=== PATIENT | female | born 1940 | race Caucasian/White ===

== ENCOUNTER → 2020-10-30 10:04 | Outpatient (CLI) | payer MEDICARE, SELFPAY ==
--- NOTE | ~2020-10-30 | MM_ITS ---
EXAMINATION: MM screening [facility] BI w eliazar HISTORY: Screening mammogram TECHNIQUE: Craniocaudal and mediolateral oblique 3-D tomosynthesis images were obtained and synthetic 2-D images were generated. CAD analysis was submitted and interpreted. COMPARISON: 10/25/2019, 10/14/2018, 10/16/2017 BREAST PARENCHYMAL COMPOSITION: There are scattered areas of fibroglandular density. FINDINGS: There is no evidence of suspicious mass, calcification, or architectural distortion to sugg est malignancy in either breast. There has been no suspicious interval change. IMPRESSION: 1. No mammographic evidence of malignancy. 2. Recommend routine screening mammography in one year. BI-RADS Category 1: Negative Reviewed, dictated and finalized at location A. 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
== END ==
PROVIDERS: PCP Nurse Practitioner Adult Health; Visit Provider Nurse Practitioner Adult Health
DX: Z12.31 Encounter for screening mammogram for malignant neoplasm of breast (principal)
CPT/HCPCS: 77063; 77067

== ENCOUNTER → 2022-01-28 11:12 | Outpatient (CLI) | payer MEDICARE, SELFPAY ==
--- NOTE | ~2022-01-28 | MM_ITS ---
EXAMINATION: MM screening [facility] w eliazar HISTORY: Screening TECHNIQUE: Craniocaudal and mediolateral oblique 3-D tomosynthesis images were obtained and synthetic 2-D images were generated. CAD analysis was submitted and interpreted. COMPARISON: Comparison to multiple prior studies sequentially, with oldest reviewed study dated 10/2014. BREAST PARENCHYMAL COMPOSITION: There are scattered areas of fibroglandular density. FINDINGS: There is no evidence of suspicious mass, calcification, or architectural distortion to sugg est malignancy in either breast. There has been no suspicious interval change. IMPRESSION: 1. No mammographic evidence of malignancy. 2. Recommend routine screening mammography in one year. BI-RADS Category 1: Negative Reviewed, dictated and finalized at location A.
== END ==
PROVIDERS: PCP Nurse Practitioner Adult Health; Visit Provider Nurse Practitioner Adult Health
DX: Z12.31 Encounter for screening mammogram for malignant neoplasm of breast (principal)
CPT/HCPCS: 77063; 77067

== ENCOUNTER → 2023-01-29 11:23 | Outpatient (CLI) | payer MEDICARE, SELFPAY ==
--- NOTE | ~2023-01-29 | MM_ITS ---
EXAMINATION: MM screening [facility] BI w eliazar HISTORY: Screening TECHNIQUE: Craniocaudal and mediolateral oblique 3-D tomosynthesis images were obtained and synthetic 2-D images were generated. CAD analysis was submitted and interpreted. COMPARISON: Comparison to multiple prior studies sequentially, with oldest reviewed study dated 09/25. BREAST PARENCHYMAL COMPOSITION: There are scattered areas of fibroglandular density. FINDINGS: There is no evidence of suspicious mass, calcification, or architectural distortion to sugg est malignancy in either breast. There has been no suspicious interval change. IMPRESSION: 1. No mammographic evidence of malignancy. 2. Recommend routine screening mammography in one year. BI-RADS Category 1: Negative Reviewed, dictated and finalized at location A.
== END ==
PROVIDERS: PCP Nurse Practitioner Family; Visit Provider Nurse Practitioner Family
DX: Z12.31 Encounter for screening mammogram for malignant neoplasm of breast (principal)
CPT/HCPCS: 77063; 77067

== ENCOUNTER 2023-02-26 08:37 | Outpatient (CLI) | payer MEDICARE, SELFPAY ==
[2023-02-26 10:03] LABS: Alanine Aminotransferase 22 U/L (6-35); Albumin Level 4.4 g/dL (3.5-5.1); Alkaline Phosphatase 73 U/L (38-126); Anion Gap 6 mmol/L (8-16); Aspartate Amino Transferase 24 U/L (14-36); Bilirubin,Total 0.7 mg/dL (0.2-1.3); Blood Urea Nitrogen 26 mg/dL (7-17); Calcium 9.7 mg/dL (8.4-10.2); Carbon Dioxide 29 mmol/L (22-30); Chloride 105 mmol/L (98-107); Cholesterol 195 mg/dL (0-200); Estimated Glomerular Filt Rate 48; Glucose 93 mg/dL (65-110); HDL Direct 44 mg/dL; Sodium 140 mmol/L (137-145); Triglycerides 128 mg/dL (<150)
[2023-02-26 10:14] LABS: LDL Cholesterol Direct 104 mg/dL
== END 2023-02-26 08:38 | disposition home or self-care (01) ==
LOC: ANHLAB 08:44
PROVIDERS: PCP Nurse Practitioner Family; Visit Provider Nurse Practitioner Family
DX: E55.9 Vitamin D deficiency, unspecified (principal); E78.5 Hyperlipidemia, unspecified; I10 Essential (primary) hypertension
CPT/HCPCS: 36415; 80048; 80061; 80076

== ENCOUNTER 2023-03-03 10:17 | Outpatient (CLI) | payer MEDICARE, SELFPAY ==
[2023-03-03 12:05] LABS: Vitamin D 25 Hydroxy 64.6 ng/mL
== END 2023-03-03 10:18 | disposition home or self-care (01) ==
PROVIDERS: PCP Nurse Practitioner Family; Visit Provider Nurse Practitioner Family
DX: I10 Essential (primary) hypertension (principal); E55.9 Vitamin D deficiency, unspecified; E78.5 Hyperlipidemia, unspecified
CPT/HCPCS: 36415; 82306

== ENCOUNTER 2023-03-15 19:06 | Emergency (ER) | payer MEDICARE, SELFPAY ==
--- NOTE | ~2023-03-15 | CT_ITS ---
EXAMINATION: CT lumbar spine wo con DATE: 03/15/2023 23:10 INDICATION: Low back pain. TECHNIQUE: Computed tomography (CT) of the lumbar spine was performed without intravenous contrast. A utomated exposure control and iterative reconstruction technique were employed. The dose-length produ ct was 524.37 mGy-cm. COMPARISON: None FINDINGS: There is 11 degrees levoscoliosis of lumbar spine. S1 is a transitional segment. There is 6 mm anterolisthesis of L4 on L5. Vertebral body heights are normal. There is moderately decreased dis c height at T11-T12, severely decreased disc height at L1-L2 and L2-L3, mildly decreased disc height at L3-L4, and severely decreased disc height at L4-L5 and L5-S1. There is Baastrup disease at L3-L4 a nd L4-L5. The following disc levels are specifically discussed: L1-L2: The disc is bulging. There is severe right and moderate left facet joint osteoarthritis. There is mild bilateral neural foraminal stenosis. There is mild central canal stenosis. L2-L3: The disc is bulging. There is severe bilateral facet joint osteoarthritis. There is mild bilat eral neural foraminal stenosis. There is mild central canal stenosis. L3-L4: The disc is bulging. There is severe bilateral facet joint osteoarthritis. There is hypertroph y of the ligamentum flavum. There is mild bilateral neural foraminal stenosis. There is moderate kisha tral canal stenosis. L4-L5: The disc is bulging. There is severe bilateral facet joint osteoarthritis. There is hypertroph y of the ligamentum flavum. There is moderate right and mild left neural foraminal stenosis. There is severe central canal stenosis. L5-S1: The disc is bulging. There is severe bilateral facet joint osteoarthritis. There is mild bilat eral neural foraminal stenosis. There is mild central canal stenosis. IMPRESSION: 1. Severe lumbar spondylosis. Reviewed, dictated and finalized at location A.
[2023-03-15 19:16] VITALS: BP 174/76; PULSE 112; RESP 18; TEMP 37.2; O2SAT 98
--- NOTE | 2023-03-15 21:52 | ED.BACK ---
HPI - Back Pain/Injury General Chief Complaint: Back Pain/Injury Stated Complaint: back pain Time Seen by Provider: 03/15/23 21:17 Source: patient Mode of arrival: ambulatory Limitations: no limitations History of Present Illness HPI Narrative: This is an 82-year-old female who presents to the ED with chief complaint of acute on chronic back pain. She states the pain is in the low back area and radiates down the right leg. She states this is the exact same in character to her chronic back pain for several years. However today the severity of pain became worse. Denies any traumas or injuries. Denies any saddle anesthesia, fevers, chills, numbness, weakness, urinary retention or incontinence. Denies urinary symptoms. Denies chest pain or abdominal pain. Related Data Allergies Allergy/AdvReac Type Severity Reaction Status Date / Time levofloxacin Allergy Mild rash Verified 03/15/23 19:07 Review of Systems Review of Systems: CONSTITUTIONAL: Denies fever, chills, or sweats. EYES: Denies visual changes, redness, or discharge. ENT: Denies rhinorrhea, congestion, sore throat, or otalgia. CARDIOVASCULAR: Denies chest pain, palpitations, or edema. RESPIRATORY: Denies cough or dyspnea. GASTROINTESTINAL: Denies abdominal pain, nausea, vomiting, or diarrhea. GENITOURINARY: Denies dysuria or hematuria. SKIN: Denies rash or itching. MUSCULOSKELETAL: See HPI NEUROLOGIC: Denies headache, numbness, dizziness, or weakness. PSYCHIATRIC: Denies anxiety or depression. PMFSH Social History Social History Smoking status: Never smoker Alcohol intake: current Exam Narrative: GENERAL: Well-appearing, well-nourished, and in no acute distress. HEAD: Normocephalic, atraumatic. EYES: PERRLA and EOMI. ENT: Nares clear, no rhinorrhea or epistaxis. Mucous membranes moist. Oropharynx without tonsillar hypertrophy exudate or other lesions. NECK: Supple. No adenopathy or masses. CHEST: No respiratory distress. Clear to auscultation. No wheezes rales or rhonchi HEART: Regular rate and rhythm. No murmur heard. Normal peripheral pulses. ABDOMEN: Soft, nontender, nondistended, normal active bowel sounds. MSK: Right paraspinal tenderness around the lumbar spine. Right SI joint tenderness. Straight leg raise on the right recreates pain down the leg. Normal range of motion. No edema. No midline pain or step-offs or deformities. She is ambulatory. SKIN: Warm, dry, no rash. NEURO: Alert and oriented x3. No focal deficits. No saddle anesthesia. 5 out of 5 strength and sensation throughout the lower extremities. PSYCH: Normal mood and affect. Course Vital Signs Vital signs: Vital Signs Temperature 99.0 F 03/15/23 19:16 Pulse Rate 112 H 03/15/23 19:16 Respiratory Rate 18 03/15/23 19:16 Blood Pressure 174/76 H 03/15/23 19:16 Pulse Oximetry 98 03/15/23 19:16 Temperature 99.0 F 03/15/23 19:16 Pulse Rate 112 H 03/15/23 19:16 Respiratory Rate 18 03/15/23 19:16 Blood Pressure 174/76 H 03/15/23 19:16 Pulse Oximetry 98 03/15/23 19:16 MDM - Back Pain/Injury MDM Narrative Medical decision making narrative: This is an 82-year-old female presents to the ED with chief complaint of right lower back pain radiating into the right leg for several years and worse today. No new injuries or traumas. Vitals are stable. Exam is reassuring. No red flag back signs or symptoms other than age. Lab work is unremarkable. UA negative. CT of the lumbar spine shows advanced degenerative changes. Her symptoms are likely consistent with degenerative disc disease with sciatica. Stable for discharge. Encouraged to follow-up closely with her PCP regarding pain control. Supportive measures discussed and return precautions given. Patient and family are understanding and agreeable with plan for discharge and follow-up. Lab Data 03/15/23 22:01 03/15/23 22:01 Labs: Lab Results 03/15/2302/24
[2023-03-15] MEDS: ONDANSETRON INJ 4 MG/2 ML VIAL IV PUSH (22:02)
[2023-03-15] MEDS: MORPHINE SULFATE (*CRX) 4 MG/ML INJ IV PUSH (22:02)
[2023-03-15 22:09] LABS: Basophils Percent Auto 0.3 % (0.2-1.2); Hematocrit 37.9 % (37.0-47.0); Hemoglobin 12.6 g/dL (12.0-15.0); Immature Granulocyte Absolute 0.04 K/mm3 (0.00-0.031); Immature Granulocyte Percent A 0.4 % (0-0.5); Lymphocytes Absolute Auto 1.75 K/mm3 (0.9-3.2); Lymphocytes Percent Auto 15.9 % (18.3-44.2); Mean Corpuscular HGB Conc 33.2 g/dl (32-36); Mean Corpuscular Hemoglobin 31.9 pg (26-34); Mean Corpuscular Volume 95.9 fl (80-100); Mean Platelet Volume 10.1 fl (7.4-10.4); Monocytes Percent Auto 8.8 % (2.6-8.5); Neutrophils Absolute Auto 8.2 K/mm3 (1.3-6.7); Neutrophils Percent Auto 74.6 % (45.5-73.1); Platelet Count Result 225 k/mm3 (150-375); Red Blood Count 3.95 M/mm3 (4.2-5.4); Red Cell Distribution Width 12.3 % (11.5-14.5)
[2023-03-15 22:20] LABS: Alanine Aminotransferase 33 U/L (6-35); Albumin Level 3.9 g/dL (3.5-5.1); Alkaline Phosphatase 86 U/L (38-126); Anion Gap 6 mmol/L (8-16); Aspartate Amino Transferase 36 U/L (14-36); Bilirubin,Total 0.9 mg/dL (0.2-1.3); Blood Urea Nitrogen 31 mg/dL (7-17); Calcium 8.8 mg/dL (8.4-10.2); Carbon Dioxide 27 mmol/L (22-30); Chloride 105 mmol/L (98-107); Estimated CRCL calculation 39 ml/min; Estimated Glomerular Filt Rate 60; Glucose 114 mg/dL (65-110); Potassium 3.5 mmol/L (3.4-5.0); Sodium 138 mmol/L (137-145)
[2023-03-15 23:38] LABS: Appearance Urine Clear (Clear); Bacteria Urine 4+ /hpf; Bilirubin Urine Negative (Negative); Blood Urine Negative (Negative); Color Urine Dark Yellow (Yellow); Glucose Urine UA Negative (Negative); Ketones Urine 1+ mg/dL (Negative); Leukocyte Esterase Ur Negative LEU/UL (Negative); Nitrate Urine Negative (Negative); Non Pathogenic Casts 0-2; Protein Urine 2+ mg/dL (Negative); RBC Urine 0-2 /hpf (0-2); Specific Grav Ur 1.023 (1.001-1.035); Squamous Epithelial Cell Urine None seen /hpf (Few); WBC Urine 0-5 /hpf
[2023-03-15 23:48] LABS: Add Urine Microscopic? YES
[2023-03-16 02:50] VITALS: BP 184/93; PULSE 103; RESP 17; O2SAT 98
== END 2023-03-16 03:00 | disposition home or self-care (01) ==
PROVIDERS: Emergency Provider Physician Assistant; PCP Nurse Practitioner Family
DX: S39.012A Strain of muscle, fascia and tendon of lower back, initial encounter (principal); M54.16 Radiculopathy, lumbar region; X58.XXXA Exposure to other specified factors, initial encounter
CPT/HCPCS: 36415; 72131; 80053; 81001; 85025; 96374; 96375; 99284; J2270; J2405

== ENCOUNTER 2023-08-10 10:01 | Inpatient (IN) | payer MEDICARE, SELFPAY ==
[2023-08-10] VITALS (37 sets, daily range): BP systolic 116–169; BP diastolic 51–98; PULSE 82–114; RESP 16–27; TEMP 36.4–36.7; O2SAT 92–100; BMI 25.0
--- NOTE | ~2023-08-10 | CT_ITS ---
EXAMINATION: CT abdomen pelvis w con DATE: 08/10/2023 14:10 INDICATION: Nausea and vomiting TECHNIQUE: Computed tomography (CT) of the abdomen and pelvis was performed with 100 mL Omnipaque-350 intravenous contrast. Automated exposure control and iterative reconstruction technique were employe d. The dose-length product was 636.65 mGy-cm. COMPARISON: None FINDINGS: Respiratory motion and minimal atelectasis at the bilateral lung bases. Heart size is normal. No evert cardial or pleural effusion. Small sliding-type hiatal hernia. Additional scattered motion artifact a t the upper and lower abdomen mildly limiting evaluation. Diffuse hepatic steatosis. Gallbladder, spl een, pancreas and bilateral adrenal glands are normal. Likely age-related mild bilateral renal atroph y. Bowels including the appendix are normal. Bladder, anteverted uterus and bilateral adnexa are unre markable. No free intraperitoneal gas or fluid. No pathologically enlarged abdominal or pelvic lympha denopathy. Moderate lower thoracic spondylosis with chronic mild likely physiologic anterior wedging at T11 and T12. Mild lumbar levoscoliosis with severe spondylosis and 4 mm anterolisthesis L4 on L5. IMPRESSION: 1. No acute intra-abdominal/pelvic process. 2. Small sliding-type hiatal hernia. 3. Diffuse hepatic steatosis. Reviewed, dictated and finalized at location A.
--- NOTE | ~2023-08-10 | CT_ITS ---
EXAMINATION: CT brain wo con DATE: 08/10/2023 10:55 INDICATION: Increased confusion. Headache. Nausea and vomiting. TECHNIQUE: Computed tomography (CT) of the head was performed without intravenous contrast. The mA wa s adjusted according to patient size. Iterative reconstruction technique was employed. Exam dose: 68 1.00 mGy-cm total exam DLP. COMPARISON: None FINDINGS: There is prominent bilateral carotid siphon internal carotid artery calcifications and vert ebrobasilar artery calcification as well. There is nonspecific diminished attenuation of the cerebral white matter, likely due to chronic small vessel ischemic changes. No intracranial mass lesion or hemorrhage or cerebrovascular accident is detected. No midline shifts or mass effect. No subdural or epidural hematoma. Left mastoid effusions are noted. The right mastoid air cells are clear. There is some soft tissue th ickening within the left sphenoid sinus; the remainder of the paranasal sinuses are unremarkable. No fracture or bone destruction of the cranial vault is detected. Bilateral lens replacements. IMPRESSION: Cerebral atherosclerosis and chronic small vessel ischemic changes of the cerebral white matter No acute intracranial finding Reviewed, dictated and finalized at Location A. Reviewed, dictated and finalized at location B.
--- NOTE | 2023-08-10 10:08 | ECG_ITS ---
Measurements Intervals Welcome Rate: 110 P: 38 SD: 160 QRS: -23 QRSD: 81 T: 13 QT: 319 QTc: 432 Interpretive Statements SINUS TACHYCARDIA BASELINE ARTIFACT BORDERLINE LEFT AXIS DEVIATION [QRS AXIS < -20] MINIMAL ST DEPRESSION [0.025+ mV ST DEPRESSION] ABNORMAL RHYTHM ECG COMPARED TO ECG 08/17/2019 13:14:05 HEART RATE HAS INCREASED ST (T WAVE) DEVIATION NOW PRESENT Electronically Signed On 08-10-2023 17:01:48 CDT by Casper Fernandez M.D.
[2023-08-10 10:28] LABS: Basophils Percent Auto 0.4 % (0.2-1.2); Eosinophils Absolute Auto 0.2 K/mm3 (0-0.3); Eosinophils Percent Auto 3.2 % (0-4.4); Hemoglobin 13.3 g/dL (12.0-15.0); Immature Granulocyte Absolute 0.03 K/mm3 (0.00-0.031); Immature Granulocyte Percent A 0.4 % (0-0.5); Lymphocytes Absolute Auto 1.31 K/mm3 (0.9-3.2); Lymphocytes Percent Auto 17.9 % (18.3-44.2); Mean Corpuscular HGB Conc 32.4 g/dl (32-36); Mean Corpuscular Hemoglobin 31.9 pg (26-34); Mean Corpuscular Volume 98.3 fl (80-100); Mean Platelet Volume 10.3 fl (7.4-10.4); Monocytes Absolute Auto 0.7 K/mm3 (0.1-0.6); Monocytes Percent Auto 9.7 % (2.6-8.5); Neutrophils Percent Auto 68.4 % (45.5-73.1); Platelet Count Result 221 k/mm3 (150-375); Red Blood Count 4.17 M/mm3 (4.2-5.4); Red Cell Distribution Width 13.3 % (11.5-14.5); White Blood Count 7.3 K/mm3 (4.5-10.0)
--- NOTE | 2023-08-10 10:30 | ED.AMS ---
HPI - Altered Mental Status General Chief Complaint: Altered Mental Status Stated Complaint: AMS/WEAK/ R/O CVA History of Present Illness HPI narrative: Patient is an 83-year-old female who presents ER with new alteration mental status. Patient has history of dementia and lives at a fpc. Patient is only oriented x1. She is able to follow commands. No focal weakness. Patient does endorse having a headache but provides no additional history. Nontoxic-appearing. Related Data Home Medications Medication Instructions Recorded Confirmed buspirone 15 mg tablet 7.5 mg PO BID 08/10/23 08/10/23 celecoxib 200 mg capsule 200 mg PO DAILY 08/10/23 08/10/23 cholecalciferol (vitamin D3) 25 1,000 unit PO DAILY 08/10/23 08/10/23 mcg (1,000 unit) capsule cyclobenzaprine 5 mg tablet 5 mg PO TID PRN muscle spasm 08/10/23 08/10/23 famotidine 20 mg tablet 20 mg PO BID 08/10/23 08/10/23 lisinopril 40 mg tablet 40 mg PO DAILY 08/10/23 08/10/23 meclizine 25 mg tablet 25 mg PO DAILY PRN Dizziness Or 08/10/23 08/10/23 Vertigo metoprolol succinate 25 mg 25 mg PO DAILY 08/10/23 08/10/23 tablet,extended release 24 hr tramadol 50 mg tablet 50 mg PO BID PRN Pain 08/10/23 08/10/23 Allergies Allergy/AdvReac Type Severity Reaction Status Date / Time levofloxacin Allergy Mild rash Verified 03/15/23 19:07 morphine AdvReac Hallucinati Verified 08/10/23 13:21 ng Review of Systems Review of Systems: ROS unobtainable: Yes unobtainable due to mental status PMFSH Past Medical History Medical History (Updated 08/10/23 @ 19:21 by Jorge Luis Thomason MD) Dementia Essential hypertension Pure hypercholesterolemia Social History Social History Smoking status: Never smoker Alcohol intake: never Substance use: never Spiritual care concerns: No Exam Narrative: GENERAL: Well-appearing, well-nourished, and in no acute distress. HEAD: Normocephalic, atraumatic. EYES: PERRL and EOMI. ENT: Mucous membranes moist. CHEST: Clear to auscultation. No respiratory distress. HEART: Regular rate and rhythm. Normal peripheral pulses. ABDOMEN: Soft, nontender, nondistended. EXTREMITIES: Normal range of motion. No edema. SKIN: Warm, dry, no rash. NEURO: Alert and oriented x1. No upper or lower extremity drift. No slurred speech. Cranial nerves symmetric PSYCH: Normal mood and affect. Course Course Emergency Course: Patient's labs with evidence of dehydration. Patient received 1500 mL of saline while in the ER with minimal improvement of her creatinine. She also continues to be nauseous and has not felt she will improve at home. No acute intra-abdominal process or intracranial process. Admit for hydration nausea control Vital Signs Vital signs: Vital Signs Temperature 97.6 F 08/10/23 09:57 Pulse Rate 114 H 08/10/23 09:57 Respiratory Rate 26 H 08/10/23 09:57 Blood Pressure 161/88 H 08/10/23 09:57 Pulse Oximetry 100 08/10/23 09:57 Oxygen Delivery Room Air 08/10/23 09:57 Temperature 98.0 F 08/10/23 17:16 Pulse Rate 89 08/10/23 17:16 Respiratory Rate 18 08/10/23 17:16 Blood Pressure 146/51 H 08/10/23 17:16 Pulse Oximetry 100 08/10/23 17:16 Oxygen Delivery Room Air 08/10/23 11:15 MDM - Altered Mental Status Lab Data 08/10/23 10:23 08/10/23 14:50 Labs: Lab Results 08/10/23 08/10/23 08/10/23 Range/Units 10: 10:34 14:50 WBC 7.3 (4.5-10.0) K/mm3 RBC 4.17 L (4.2-5.4) M/mm3 Hgb 13.3 (12.0-15.0) g/dL Hct 41.0 (37.0-47.0) % MCV 98.3 (80-100) fl MCH 31.9 (26-34) pg MCHC 32.4 (32-36) g/dl RDW 13.3 (11.5-14.5) % Plt Count 221 (150-375) k/mm3 MPV 10.3 (7.4-10.4) fl Immature Gran % (Auto) 0.4 (0-0.5) % Neut % (Auto) 68.4 (45.5-73.1) % Lymph % (Auto) 17.9 L (18.3-44.2) % [place] % (Auto) 9.7 H (2.6-8.5) % Eos % (Auto) 3.2 (0-4.4) % Baso % (Auto) 0.4 (0.2-1.2) %
[2023-08-10 10:40] LABS: Alanine Aminotransferase 27 U/L (6-35); Albumin Level 4.3 g/dL (3.5-5.1); Alkaline Phosphatase 85 U/L (38-126); Anion Gap 10 mmol/L (8-16); Aspartate Amino Transferase 32 U/L (14-36); Bilirubin,Total 0.7 mg/dL (0.2-1.3); Blood Urea Nitrogen 40 mg/dL (7-17); Calcium 10.4 mg/dL (8.4-10.2); Carbon Dioxide 22 mmol/L (22-30); Chloride 105 mmol/L (98-107); Estimated CRCL calculation 26 ml/min; Estimated Glomerular Filt Rate 31; Glucose 112 mg/dL (65-110); Potassium 4.8 mmol/L (3.4-5.0); Sodium 137 mmol/L (137-145)
[2023-08-10] MEDS: ONDANSETRON INJ 4 MG/2 ML VIAL IV PUSH ×2 (10:43→15:08)
[2023-08-10 10:45] LABS: Prothrombin Time 13.6 Seconds (11.1-14.7)
[2023-08-10 10:46] LABS: Partial Thromboplastin Time 25.2 SECONDS (22.3-36.8)
--- NOTE | 2023-08-10 10:46 | PC.NURSE ---
pt to CT via stretcher at this time. Pt on cardiac and O2 monitor.
[2023-08-10 10:53] LABS: Appearance Urine Cloudy (Clear); Bacteria Urine Rare /hpf; Bilirubin Urine Negative (Negative); Blood Urine Negative (Negative); Color Urine Yellow (Yellow); Glucose Urine UA Negative (Negative); Ketones Urine Negative (Negative); Leukocyte Esterase Ur Negative LEU/UL (Negative); Nitrate Urine Negative (Negative); Non Pathogenic Casts 0-2; Protein Urine Trace mg/dL (Negative); RBC Urine 0-2 /hpf (0-2); Specific Grav Ur 1.023 (1.001-1.035); Squamous Epithelial Cell Urine None seen /hpf (Few); WBC Urine 0-5 /hpf
[2023-08-10] MEDS: SODIUM CHLORIDE 0.9% IV 1,000 ML 999 ML IV CONT (10:56)
[2023-08-10 11:00] LABS: Add Urine Microscopic? YES
--- NOTE | 2023-08-10 11:14 | PC.NURSE ---
Patient report received from ANAMARIA Lugo. All questions answered and care of patient assumed.
[2023-08-10] MEDS: SODIUM CHLORIDE 0.9% IV 500 ML 999 ML IV CONT (13:13)
[2023-08-10] MEDS: fentaNYL CITRATE INJ (*CRX) 100 MCG/2 ML VIAL 25 MCG IV PUSH (13:53)
[2023-08-10 15:11] LABS: Anion Gap 10 mmol/L (8-16); Blood Urea Nitrogen 36 mg/dL (7-17); Carbon Dioxide 18 mmol/L (22-30); Chloride 107 mmol/L (98-107); Estimated CRCL calculation 30 ml/min; Estimated Glomerular Filt Rate 36; Glucose 102 mg/dL (65-110); Potassium 4.7 mmol/L (3.4-5.0); Sodium 135 mmol/L (137-145)
[2023-08-10] MEDS: SODIUM CHLORIDE 0.9% IV 1,000 ML 125 ML IV CONT (16:35)
[2023-08-10] MEDS: traMADol HCL (*CRX) 25 MG TABLET PO ×2 (16:52→21:49)
--- NOTE | 2023-08-10 17:39 | ADMGEN ---
This patient, Angela Henson (Pat ), was admitted to 3 [facility] Surg Room 325-01. Patient/family oriented to hospital policies and general routines including ID bracelet, bed and alarms, visiting hours, pain management, procedures, bathroom and other care routines, personal items, smoking policy, room service/diet, and visiting hours. Information on how to activate the Rapid Response Team has been discussed. Patient/Family are encouraged to report perceived risks to care and to ask questions if they do not understand what they are told or what they should do.
--- NOTE | 2023-08-10 18:22 | PM.IMHP ---
H&P: HPI History of Present Illness Date/Time: 08/10/23 17:00 Chief Complaint: Confusion. Narrative: This is an 83-year-old female with dementia, hypertension, hyperlipidemia, and chronic back pain who presented to the emergency department via EMS for evaluation of confusion. She is not a good historian though she does answer some questions. Her son Karsten provides additional information, with the patient's permission. The patient had COVID 2 to 3 weeks ago and seemed to recover from that. Last night she seemed to be in her usual state of health. This morning Karsten received a call from the facility that the patient was confused and she was being sent the hospital. Upon arrival she complained of nausea and reportedly had 2 episodes of nonbloody and nonbilious emesis. On exam she was found to have a distended bladder and on straight catheterization a little over 300 mL of urine was obtained. Preliminary workup in the ED was significant for an acute kidney injury with a creatinine of 1.60 which is up from 0.90 about 6 months ago. The remainder of her labs are pretty unremarkable. Urine was cloudy but nitrate and leukocyte esterase negative. 0 to 5 WBC and rare bacteria were seen on microscopy. Brain CT showed no acute findings. CT of the abdomen and pelvis showed no acute findings, small sliding-type hiatal hernia, diffuse hepatic steatosis. She is being admitted in this setting for evaluation of confusion and acute kidney injury. At the time my evaluation she complains of her chronic back pain only. Review of Systems Review of Systems: Unable to be obtained accurately as she is a bit confused and is not answering questions appropriately. [facility] Past Medical History Medical History (Updated 08/10/23 @ 21:35 by Lashawn uQeen PA-C) Dementia Essential hypertension Pure hypercholesterolemia Surgical History Surgical History (Updated 08/10/23 @ 21:33 by Lashawn Queen PA-C) History of hysterectomy History of hysteroscopy Family History Family History (Updated 08/10/23 @ 21:33 by Lashawn Queen PA-C) Other Family history unknown Social History Social History (Updated 08/10/23 @ 21:34 by Lashawn Queen PA-C) Social History: Surrogate medical decision maker: Karsten Henson, court. Code status: Do not resuscitate though we do not have paperwork as of yet. Smoking status: Never smoker Alcohol intake: never Substance use: never Additional living arrangements comments: Assisted living at [facility]. 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 Spiritual care concerns: No Meds Home Medications and Allergies Home Medications Medication Instructions Recorded Confirmed Type buspirone 15 mg tablet 7.5 mg PO BID 08/10/23 08/10/23 History celecoxib 200 mg capsule 200 mg PO DAILY 08/10/23 08/10/23 History cholecalciferol (vitamin D3) 25 1,000 unit PO DAILY 08/10/23 08/10/23 History mcg (1,000 unit) capsule cyclobenzaprine 5 mg tablet 5 mg PO TID PRN muscle spasm 08/10/23 08/10/23 History famotidine 20 mg tablet 20 mg PO BID 08/10/23 08/10/23 History lisinopril 40 mg tablet 40 mg PO DAILY 08/10/23 08/10/23 History meclizine 25 mg tablet 25 mg PO DAILY PRN Dizziness Or 08/10/23 08/10/23 History Vertigo metoprolol succinate 25 mg 25 mg PO DAILY 08/10/23 08/10/23 History tablet,extended release 24 hr tramadol 50 mg tablet 50 mg PO BID PRN Pain 08/10/23 08/10/23 History Allergies Allergy/AdvReac Type Severity Reaction Status Date / Time levofloxacin Allergy Mild rash Verified 03/15/23 19:07 morphine AdvReac Hallucinati Verified 08/10/23 13:21 ng Vital Signs Vital Signs - 24 hr 08/10/23 09:57 08/10/23 10:57 08/10/23 11:15 Temperature 97.6 F Pulse Rate 114 H 99 Respiratory Rate 26 H 24 H Blood Pressure 161/88 H 161/71 H Pulse Oximetry 100 100 Oxygen Delivery Room Air Room Air 08/10/23 10:09 08/10/23 10:15 08/10/23 10:16 T
--- NOTE | 2023-08-10 19:35 | PC.NURSE ---
Zoë Gutierrez and myself informed Dana Queen of son request for DNR status, no code status paperwork in patient records. Per JOSE RAUL Queen address tomorrow.
--- NOTE | 2023-08-10 20:36 | PC.NURSE ---
called son inquired if he can come sit with patient.
--- NOTE | 2023-08-10 20:40 | PC.NURSE ---
son to come up and sit with patient.
--- NOTE | 2023-08-10 20:40 | PC.NURSE ---
Addendum entered by Ashlyn Sr RN 08/10/23 21:00: pt pulling at IV lines. Paused fluided, informed Jamar Queen Original Note: pt pulling at lights IV fluids on standby until son arrives.
--- NOTE | 2023-08-10 20:41 | PC.NURSE ---
JOSE RAUL Queen informed about patient behaviors.
--- NOTE | 2023-08-10 21:12 | PC.NURSE ---
son informed this nurse that patient will need pain medication or will be up all night. Informed pt allergic to morphine. Fentyl was given in ED, inquiring about pain medication.
--- NOTE | 2023-08-10 21:14 | PC.NURSE ---
PA Gerling to restart patients home medication.
--- NOTE | 2023-08-10 21:38 | PC.NURSE ---
pt pulled out IV
[2023-08-10 23:22] LABS: Amphetamine Screen Urine Negative (Negative); Barbiturate Screen Urine Negative (Negative); Benzodiazepines Screen Urine Negative (Negative); Cannabinoid Screen Urine Negative (Negative); Cocaine Screen Urine Negative (Negative); Methadone Screen Urine Negative (Negative); Opiate Screen Urine Negative (Negative); Phencyclidine Screen Urine Negative (Negative)
--- NOTE | 2023-08-10 23:36 | PC.NURSE ---
UA sent to lab for analysis
[2023-08-11] MEDS: SODIUM CHLORIDE 0.9% IV 1,000 ML 125 ML IV CONT ×2 (03:50→09:14)
[2023-08-11 05:57] VITALS: BP 117/40; PULSE 70; RESP 18; TEMP 36.4; O2SAT 94
[2023-08-11 07:10] LABS: Hemoglobin 10.7 g/dL (12.0-15.0); Mean Corpuscular HGB Conc 31.5 g/dl (32-36); Mean Corpuscular Volume 101.8 fl (80-100); Mean Platelet Volume 10.1 fl (7.4-10.4); Platelet Count Result 197 k/mm3 (150-375); Red Blood Count 3.34 M/mm3 (4.2-5.4); Red Cell Distribution Width 13.6 % (11.5-14.5); White Blood Count 6.4 K/mm3 (4.5-10.0)
[2023-08-11 07:21] LABS: Ammonia < 9 umol/L (9-30)
[2023-08-11 07:26] LABS: Alanine Aminotransferase 18 U/L (6-35); Albumin Level 3.3 g/dL (3.5-5.1); Alkaline Phosphatase 58 U/L (38-126); Anion Gap 5 mmol/L (8-16); Aspartate Amino Transferase 23 U/L (14-36); Bilirubin,Total 0.6 mg/dL (0.2-1.3); Blood Urea Nitrogen 27 mg/dL (7-17); Calcium 8.5 mg/dL (8.4-10.2); Carbon Dioxide 20 mmol/L (22-30); Chloride 111 mmol/L (98-107); Estimated CRCL calculation 26 ml/min; Estimated Glomerular Filt Rate 39; Glucose 91 mg/dL (65-110); Magnesium 2.2 mg/dL (1.6-2.3); Potassium 4.5 mmol/L (3.4-5.0); Sodium 136 mmol/L (137-145)
[2023-08-11 08:27] LABS: Folic Acid 8.7 ng/mL (2.76->20)
[2023-08-11] MEDS: busPIRone HCL 2.5 MG TABLET 7.5 MG PO (09:16)
[2023-08-11] MEDS: CHOLECALCIFEROL 1,000 UNITS TABLET 1000 UNITS PO (09:16)
[2023-08-11] MEDS: FAMOTIDINE 20 MG TABLET PO (09:16)
[2023-08-11] MEDS: METOPROLOL SUCCINATE EXT REL 25 MG TABCR PO (09:16)
[2023-08-11] MEDS: traMADol HCL (*CRX) 25 MG TABLET PO ×2 (09:20→13:21)
[2023-08-11 10:33] VITALS: O2SAT 94
--- NOTE | 2023-08-11 13:16 | PM.DS ---
DS: Admitting Diagnosis Discharge Date 08/11/23 Admitting Diagnosis confusion DS: Discharge Diagnosis Discharge Diagnosis Plan The patient presented to the emergency department via EMS from [facility] for evaluation of confusion as detailed in HPI. Labs, imaging, EKG, and all reports were personally reviewed. According to the patient's son she recently had COVID but she seems to have recuperated from that. Last night she was reportedly in her usual state of health but was altered this morning. There is no evidence on examination to suggest that she had a fall or head trauma. Brain CT was showed no acute findings. A CT scan of the abdomen and pelvis was also done to evaluate nausea and vomiting and that showed no acute findings. Her creatinine is elevated from baseline, consistent with an acute kidney injury. May be related to urinary retention as straight catheterization yielded over 300 mL on insertion, in addition to acute kidney injury. She does not look necessarily dry on exam however she will be hydrated overnight to see if that helps her kidney function. Hold lisinopril and Celebrex. Repeat renal function in a.m. if no improvement a further workup may be pursued. Vital signs were stable. No red blood cells were noted in the urine thus it is unlikely that she has a kidney stone. Rare bacteria were noted on microscopy though her urine was nitrate and leukocyte esterase negative with minimal WBC. Hold antibiotics at this time. Urine culture pending. She has chronic back pain and her tramadol will be continued at a lower dose given acute kidney injury. The rest of her home medications will be reviewed and resumed as appropriate. 1. Ct antihypertensives. Ideally bp should be 120/80 or less 2. Pt's family mentioned ear pain/fullness. Discussed with them about using water/drops/picks to clean out ear 3. F/u with PMD regarding stroke workup for the future. Concern that a TIA occurred. 4. Ct hydration. DORIS not fully resolved. 5. Ct otc atc tramadol as needed. 6. Concern that the pt became dehydrated outpt because of covid. Ct outpt hydration 7. Also concern that the pt had a drug interaction between celebrex and lisinopril. Family decided to stop celebrex and increase tramadol. Counseled to stop all NSAIDS while on lisinopril. DS: Summary Hospital Course Reason for hospitalization: confusion Hospital Course: This is an 83-year-old female with dementia, hypertension, hyperlipidemia, and chronic back pain who presented to the emergency department via EMS for evaluation of confusion. She is not a good historian though she does answer some questions. Her son Karsten provides additional information, with the patient's permission. The patient had COVID 2 to 3 weeks ago and seemed to recover from that. Last night she seemed to be in her usual state of health. This morning Karsten received a call from the facility that the patient was confused and she was being sent the hospital. Upon arrival she complained of nausea and reportedly had 2 episodes of nonbloody and nonbilious emesis. On exam she was found to have a distended bladder and on straight catheterization a little over 300 mL of urine was obtained. Preliminary workup in the ED was significant for an acute kidney injury with a creatinine of 1.60 which is up from 0.90 about 6 months ago. The remainder of her labs are pretty unremarkable. Urine was cloudy but nitrate and leukocyte esterase negative. 0 to 5 WBC and rare bacteria were seen on microscopy. Brain CT showed no acute findings. CT of the abdomen and pelvis showed no acute findings, small sliding-type hiatal hernia, diffuse hepatic steatosis. She is being admitted in this setting for evaluation of confusion and acute kidney injury. At the time my evaluation she complains of her chronic back pain only. Time Spent with Patient Time attestation: Total time spent providing and/or coordinating discharge services: Exam Narrative: General:?Well-develop
[2023-08-11 14:00] VITALS: BP 168/66; PULSE 71; RESP 20; TEMP 35.9; O2SAT 95
== END 2023-08-11 14:20 | DRG 684 ==
LOC: ANHED 10:14 → ANH3MEDSUR 19:21
PROVIDERS: Physician Assistant; Admitting Provider Hospitalist; Emergency Provider Emergency Medicine; PCP Nurse Practitioner Family; Visit Provider Internal Medicine
DX: N17.9 Acute kidney failure, unspecified (principal); R33.9 Retention of urine, unspecified; I10 Essential (primary) hypertension; F03.90 Unspecified dementia, unspecified severity, without behavioral disturbance, psychotic disturbance, mood disturbance, and anxiety; E78.00 Pure hypercholesterolemia, unspecified; M54.9 Dorsalgia, unspecified; G89.29 Other chronic pain; Z90.710 Acquired absence of both cervix and uterus; Z86.16 Personal history of COVID-19; E86.0 Dehydration
CPT/HCPCS: 36415; 70450; 74177; 80048; 80053; 80307; 81001; 82140; 82607; 82746; 83735; 84443; 85025; 85027; 85610; 85730; 87086; 87147; 87181; 87186; 93005; 96361; 96374; 96375; 96376; 99285; A9270; J2405; J3010; J7030; J7040; Q9967

== ENCOUNTER 2024-04-21 13:14 | Outpatient (CLI) | payer MEDICARE, SELFPAY ==
--- NOTE | ~2024-04-21 | MM_ITS ---
EXAMINATION: MM screening ziyad BI w eliazar HISTORY: Screening mammogram TECHNIQUE: Craniocaudal and mediolateral oblique 3-D tomosynthesis images were obtained and synthetic 2-D images were generated. CAD analysis was submitted and interpreted. COMPARISON: 01/29/2023, 01/28/2022, 10/30/2020 BREAST PARENCHYMAL COMPOSITION:Not Dense. The breasts are almost entirely fatty FINDINGS: No suspicious mass, calcification, or architectural distortion are identified in either steven ast to suggest malignancy. There has been no suspicious interval change. IMPRESSION: No mammographic evidence of malignancy. Recommend routine screening mammography in one year. BI-RADS Category 1: Negative Reviewed, dictated and finalized at location .
== END 2024-04-21 13:15 ==
LOC: MICIMG 13:15
PROVIDERS: PCP Nurse Practitioner Family; Visit Provider Nurse Practitioner Family
DX: Z12.31 Encounter for screening mammogram for malignant neoplasm of breast (principal)
CPT/HCPCS: 77063; 77067

== ENCOUNTER 2024-05-05 10:19 | Outpatient (CLI) | payer MEDICARE, SELFPAY ==
[2024-05-05 11:30] LABS: Alanine Aminotransferase 19 U/L (6-35); Albumin Level 4.5 g/dL (3.5-5.1); Alkaline Phosphatase 75 U/L (38-126); Anion Gap 13 mmol/L (4-12); Aspartate Amino Transferase 27 U/L (14-36); Bilirubin,Total 0.6 mg/dL (0.2-1.3); Blood Urea Nitrogen 37 mg/dL (7-17); Calcium 9.8 mg/dL (8.4-10.2); Carbon Dioxide 21 mmol/L (22-30); Chloride 108 mmol/L (98-107); Cholesterol 206 mg/dL (0-200); Estimated Glomerular Filt Rate 31; Glucose 92 mg/dL (65-110); HDL Direct 44 mg/dL; Potassium 4.6 mmol/L (3.4-5.0); Sodium 142 mmol/L (137-145); Triglycerides 101 mg/dL (<150)
[2024-05-05 11:41] LABS: LDL Cholesterol Direct 122 mg/dL
== END 2024-05-05 10:20 | disposition home or self-care (01) ==
PROVIDERS: PCP Nurse Practitioner Family; Visit Provider Nurse Practitioner Family
DX: I10 Essential (primary) hypertension (principal)
CPT/HCPCS: 36415; 80048; 80061; 80076

== ENCOUNTER 2024-08-04 12:45 | Outpatient (CLI) | payer MEDICARE, SELFPAY ==
--- NOTE | ~2024-08-04 | US_ITS ---
US renal BI Ordering provider: Los Briggs MD History: . I10 - Essential (primary) hypertension . Comparison: None. Technique: Ultrasound bilateral kidneys. Findings: RIGHT KIDNEY: Measures 10.5x 4.7x 5.2 cm in length which is normal in size. No renal cysts. No renal mass or visualized echogenic stones. Otherwise, normal echotexture and contour. No hydronephrosis. No rmal renal cortical thickness. LEFT KIDNEY: Measures 9.3x 5.2x 5 cm in length which is normal in size. No renal cysts. No renal mass or visualized echogenic stones. Otherwise, normal echotexture and contour. No hydronephrosis. Normal renal cortical thickness. BLADDER: Normal. Ureteral jets were not seen bilaterally. IMPRESSION: No definite abnormality seen. Reviewed, dictated and finalized at location A.
[2024-08-04 14:50] LABS: Albumin Level 4.5 g/dL (3.5-5.1); Anion Gap 11 mmol/L (4-12); Blood Urea Nitrogen 33 mg/dL (7-17); Calcium 9.7 mg/dL (8.4-10.2); Carbon Dioxide 21 mmol/L (22-30); Chloride 102 mmol/L (98-107); Estimated Glomerular Filt Rate 25; Glucose 92 mg/dL (65-110); Phosphorus 4.1 mg/dL (2.5-4.5); Potassium 5.2 mmol/L (3.4-5.0); Sodium 134 mmol/L (137-145)
[2024-08-04 14:55] LABS: Complement C3 123 mg/dL (88-165)
[2024-08-04 15:08] LABS: Creatinine Urine 100.6 mg/dL; Total Protein Urine Random 9 mg/dL; Ur Ttl Prot Creatinine Ratio 0.09 mg/mg (0-0.20)
[2024-08-05 08:28] LABS: Protein, Total 7.9 g/dL (6.1-8.1)
[2024-08-05 14:03] LABS: Creatinine, Random Urine 97 mg/dL (20-275); Total Prot/Creat ratio mg/mg 0.062 (0.024-0.184); Total Protein/Creatinine Ratio 62 mg/g creat (24-184)
[2024-08-08 11:14] LABS: Anti Glomerular Basement Memb <1.0 AI
[2024-08-09 10:42] LABS: ANCA Screen NEGATIVE (NEGATIVE)
[2024-08-12 14:22] LABS: Abnormal Protein Band 1 1.5 g/dL (NONE DETECTED); Alpha 1 Globulin 0.4 g/dL (0.2-0.3); Alpha 2 Globulin 0.8 g/dL (0.5-0.9); Beta 1 Globulin 0.5 g/dL (0.4-0.6); Gamma Globulin 1.9 g/dL (0.8-1.7)
== END 2024-08-04 12:46 | disposition home or self-care (01) ==
PROVIDERS: PCP Nurse Practitioner Family; Visit Provider Internal Medicine Nephrology
DX: N17.9 Acute kidney failure, unspecified (principal); I10 Essential (primary) hypertension; R79.89 Other specified abnormal findings of blood chemistry
CPT/HCPCS: 36415; 76775; 80069; 82570; 83520; 84155; 84156; 84165; 84166; 86036; 86038; 86039; 86160; 86225

== ENCOUNTER 2024-12-01 09:52 | Outpatient (CLI) | payer MEDICARE, SELFPAY ==
--- OUTSIDE RECORDS SUMMARY | 2024-12-01 10:13 | XMS_ITS | Continuity of Care Document ---
Author Organization [facility] Address [address] [place] [address] Phone Care Team Providers Care Microarray Analyst Name Role Phone Leighton Hanks Unavailable Unavailable Advance Directives Directive Yes / No Effective Date File Name No Information Encounters Encounter Description Practice Location Reason(s) For Visit Diagnoses Date Provider Providers Copied on Encounter [facility], [address], [place], [place], [id number], [place] tel:[phone] [facility] No Information [address] , [address], [place], [address], [place]. tel:[phone] Family History Family Member Type Diagnosis Age At Onset No Information Payers Payer name Insurance type Covered constitution party ID Authoriza tion(s) No Information Social [...]
[2024-12-01 10:30] LABS: Albumin Level 4.1 g/dL (3.5-5.1); Anion Gap 13 mmol/L (4-12); Blood Urea Nitrogen 51 mg/dL (7-17); Calcium 10.1 mg/dL (8.4-10.2); Carbon Dioxide 19 mmol/L (22-30); Chloride 109 mmol/L (98-107); Estimated Glomerular Filt Rate 21; Glucose 92 mg/dL (65-110); Phosphorus 5.1 mg/dL (2.5-4.5); Potassium 5.8 mmol/L (3.4-5.0); Sodium 141 mmol/L (137-145)
[2024-12-01 10:42] LABS: Parathyroid Intact 44.9 pg/mL (14.5-75.2)
[2024-12-01 11:14] LABS: Total Protein Urine Random < 5 mg/dL; Ur Ttl Prot Creatinine Ratio < 0.02 mg/mg (0-0.20)
[2024-12-01 11:33] LABS: Vitamin D 25 Hydroxy 58.8 ng/mL
== END 2024-12-01 09:53 | disposition home or self-care (01) ==
PROVIDERS: PCP Nurse Practitioner Family; Visit Provider Internal Medicine Nephrology
DX: I12.9 Hypertensive chronic kidney disease with stage 1 through stage 4 chronic kidney disease, or unspecified chronic kidney disease (principal); N18.4 Chronic kidney disease, stage 4 (severe); N25.81 Secondary hyperparathyroidism of renal origin; E55.9 Vitamin D deficiency, unspecified
CPT/HCPCS: 36415; 80069; 82306; 82570; 83970; 84156

== ENCOUNTER 2025-04-20 11:27 | Outpatient (CLI) | payer MEDICARE, SELFPAY ==
[2025-04-20 12:43] LABS: Anion Gap 9 mmol/L (4-12); Blood Urea Nitrogen 30 mg/dL (7-17); Carbon Dioxide 24 mmol/L (22-30); Chloride 106 mmol/L (98-107); Estimated Glomerular Filt Rate 26; Potassium 4.4 mmol/L (3.4-5.0); Sodium 139 mmol/L (137-145)
[2025-04-20 12:44] LABS: Albumin Level 4.1 g/dL (3.5-5.1); Calcium 9.9 mg/dL (8.4-10.2); Glucose 92 mg/dL (65-110)
[2025-04-20 13:01] LABS: Creatinine Urine 235.6 mg/dL; Total Protein Urine Random 9 mg/dL; Ur Ttl Prot Creatinine Ratio 0.04 mg/mg (0-0.20)
== END 2025-04-20 11:28 | disposition home or self-care (01) ==
PROVIDERS: PCP Nurse Practitioner Family; Visit Provider Internal Medicine Nephrology
DX: I12.9 Hypertensive chronic kidney disease with stage 1 through stage 4 chronic kidney disease, or unspecified chronic kidney disease (principal); N18.4 Chronic kidney disease, stage 4 (severe)
CPT/HCPCS: 36415; 80069; 82570; 84156

== ENCOUNTER 2025-04-24 12:25 | Outpatient (CLI) | payer MEDICARE, SELFPAY ==
--- NOTE | ~2025-04-24 | DEXA_ITS ---
Bone Density Report Name: MICHAEL CHOUDHARY Age: 85 Sex: Female Ethnicity: White Date of : 1940 Indication: osteopenia; height loss; Referring Provider: SYED MORGAN Study: Bone densitometry was performed. Exam Date: April 24, 2025 Accession number: [id number] Bone Density: Region BMD T-score Z-score Classification AP Spine(L1-L4) 1.053 0.1 2.9 Normal Femoral Neck (Left) 0.632 -2.0 0.5 Osteopenia Total Hip (Left) 0.753 -1.6 0.7 Osteopenia Femoral Neck (Right) 0.653 -1.8 0.7 Osteopenia Total Hip (Right) 0.814 -1.0 1.2 Normal Total Hip Mean 0.783 -1.3 1.0 Osteopenia World Health Organization criteria for BMD impression classify patients as: Normal (T-score at or above -1.0), Osteopenia (T-score between -1.0 and -2.5), or Osteoporosis (T-score at or below -2.5). 10-year Fracture Risk(1): Major Osteoporotic Fracture 16% Hip Fracture 4.7% Reported Risk Factors: [place] (), Neck BMD=0.632, BMI=26.6 (1) FRAX(R) Version 3.08. Fracture probability calculated for an untreated patient. Fracture probability may be lower if the patient has received treatment. Previous Exams: -- Region Exam Age BMD T-score BMD Change BMD Change Date g/cm2 vs Baseline vs Previous -- AP Spine (L1-L4) 04/24/2025 85 1.053 0.1 6.2%* -0.6% 10/22/2018 78 1.060 0.1 6.9%* 1.9% 07/10/2014 74 1.040 -0.1 4.9%* 4.9%* 05/20/2012 72 0.992 -0.5 Total Hip(Left) 04/24/2025 85 0.753 -1.6 -1.1% -5.3%* 10/22/2018 78 0.795 -1.2 4.4%* 3.9%* 07/10/2014 74 0.765 -1.5 0.5% 0.5% 05/20/2012 72 0.761 -1.5 Total Hip(Right) 04/24/2025 85 0.814 -1.0 1.2% -3.6%* 10/22/2018 78 0.844 -0.8 5.0%* -1.5% 07/10/2014 74 0.857 -0.7 6.6%* 6.6%* 05/20/2012 72 0.804 -1.1 -- *Denotes significance at 95% confidence level, LSC for AP Spine = 0.022 g/cm2, LSC for Total Hip = 0.027 g/cm2 Clinical Information Provided by Patient: Has used the following medications: Vitamin D Patient maximum height was 66 Menopause Age: 54 No regular weight bearing exercise Does not regularly consume dairy products Onset of menses at age 13 Number of children 1 Impression: The patient has low bone mass, based on the Left Femoral Neck T-score. The patient has an estimated ten-year risk of hip fracture of 4.7% and an estimated ten-year risk of major fracture of 16%, based on the WHO FRAX algorithm. The BMD for the Total Hip(Left) decreased, changing by -5.3% since the last DXA exam. The BMD for the Total Hip(Right) decreased, changing by -3.6% since the last DXA exam. Discussion: BONE DENSITY IS LOW AT ONE OR MORE SKELETAL SITES. THE PATIENT'S BMD AND CLINICAL RISK FACTORS CONTRIBUTE TO THIS PATIENT'S INCREASED RISK OF FRACTURE. This patient's lowest T-score is low at one or more skeletal sites. It meets the World Health Organization's (WHO) criteria for ?low bone mass? (T-score between -1.0 and -2.5). The patient's 10-year risk of hip fracture as calculated by FRAX exceeds the threshold where pharmacological therapy is recommended by the National Osteoporosis Foundation (NOF). However, all treatment decisions require clinical judgment and consideration of individual patient factors, including patient preferences, comorbidities, previous drug use, risk factors not captured in the FRAX model (e.g., frailty, falls, vitamin D deficiency, increased bone turnover, interval significant decline in bone density) and possible under or overestimation of fracture risk by FRAX. The patient should follow a healthful lifestyle (good nutrition with adequate calcium and vitamin D, and appropriate weight-bearing exercise). Follow-Up: Consider a repeat BMD and Vertebral Fracture Assessment (VFA) exam in 2 years or sooner if medically necessary, to reassess this patient's status. Reported by: KIRT on 04/24/2025 12:43:00 PM. Reviewed, dictated and finalized at location A.
== END 2025-04-24 12:26 | disposition home or self-care (01) ==
LOC: MICIMG 12:26
PROVIDERS: PCP Nurse Practitioner Family; Visit Provider Nurse Practitioner Family
DX: M85.89 Other specified disorders of bone density and structure, multiple sites (principal); Z78.0 Asymptomatic menopausal state
CPT/HCPCS: 77080

== ENCOUNTER 2025-08-10 11:36 | Outpatient (CLI) | payer MEDICARE, SELFPAY ==
--- OUTSIDE RECORDS SUMMARY | 2002-05-20 10:15 | XMS_ITS | Continuity of Care Document ---
Author Organization [facility] Address [address] [place] [address] Phone Care Team Providers Care Medication Manager Name Role Phone Leighton Hanks Unavailable Unavailable Advance Directives Directive Yes / No Effective Date File Name No Information Encounters Encounter Description Practice Location Reason(s) For Visit Diagnoses Date Provider Providers Copied on Encounter [facility], [address], [place], [place], [id number], [place] tel:[phone] [facility] No Information [address]zanares. [address] , [address], [place], [address], [place]. tel:[phone] Family History Family Member Type Diagnosis Age At Onset No Information Payers Payer name Insurance type Covered alliance party ID Authoriza tion(s) No Information Social History Type Description Quantity Date Captured Comments Sex Female Smoking Status No Information Chief Complaint And Reason For Visit No Information Reason For Referral Reason For Referral No Information History Of Present Illness Encounter Date Complaint History Of Prese nt Illness No Information Functional Status Date Functional Assessmen t No Information Instructions Date Instruction Additional Infor mation No Information Assessments Type Assessment Date No Information Patient Care Teams Name Effective Dates (start - stop) Status Members No Information
[2025-08-10 12:24] LABS: Hematocrit 41.6 % (37.0-47.0); Hemoglobin 13.6 g/dL (12.0-15.0); Immature Granulocyte Percent A 0.3 % (0-0.5); Lymphocytes Absolute Auto 2.21 K/mm3 (0.9-3.2); Mean Corpuscular HGB Conc 32.7 g/dl (32-36); Mean Corpuscular Hemoglobin 31.7 pg (26-34); Mean Corpuscular Volume 97.0 fl (80-100); Nucleated Red Blood Cells Absolute Auto 0.000 K/mm3 (0.0-0.012); Nucleated Red Blood Cells Perc 0.0 % (0.0-0.2); Platelet Count Result 226 k/mm3 (150-375); Red Blood Count 4.29 M/mm3 (4.2-5.4); White Blood Count 6.3 K/mm3 (4.5-10.0)
[2025-08-10 12:49] LABS: Alanine Aminotransferase 18 U/L (6-35); Albumin Level 4.3 g/dL (3.5-5.1); Alkaline Phosphatase 93 U/L (38-126); Anion Gap 8 mmol/L (4-12); Aspartate Amino Transferase 33 U/L (14-36); Bilirubin,Total 0.7 mg/dL (0.2-1.3); Blood Urea Nitrogen 36 mg/dL (7-17); Calcium 9.9 mg/dL (8.4-10.2); Carbon Dioxide 25 mmol/L (22-30); Chloride 106 mmol/L (98-107); Cholesterol 211 mg/dL (0-200); Estimated Glomerular Filt Rate 26; Glucose 86 mg/dL (65-110); HDL Direct 41 mg/dL; Potassium 4.8 mmol/L (3.4-5.0); Sodium 139 mmol/L (137-145); Total Protein 8.7 g/dL (6.3-8.2); Triglycerides 103 mg/dL (<150)
[2025-08-10 13:01] LABS: Parathyroid Intact 54.8 pg/mL (14.5-75.2)
[2025-08-10 13:19] LABS: Thyroid Stimulating Hormone Reflex 1.690 uIU/mL (0.465-4.68); Total Protein Urine Random < 5 mg/dL; Ur Ttl Prot Creatinine Ratio < 0.02 mg/mg (0-0.20)
[2025-08-10 21:05] LABS: Hemoglobin A1C 5.1 % (<5.7)
== END 2025-08-10 11:37 | disposition home or self-care (01) ==
PROVIDERS: PCP Nurse Practitioner Family; Visit Provider Internal Medicine Nephrology
DX: N25.81 Secondary hyperparathyroidism of renal origin (principal); I12.9 Hypertensive chronic kidney disease with stage 1 through stage 4 chronic kidney disease, or unspecified chronic kidney disease; N18.4 Chronic kidney disease, stage 4 (severe); E55.9 Vitamin D deficiency, unspecified; Z13.1 Encounter for screening for diabetes mellitus; R42 Dizziness and giddiness
CPT/HCPCS: 36415; 80053; 80061; 82306; 82570; 83036; 83970; 84100; 84156; 84443; 85025